=== PATIENT | male | born 1990 | race Caucasian/White ===

== ENCOUNTER 2019-02-19 18:19 | Emergency (ER) | payer OTHER ==
[~2019-02-19] VITALS: Ht 175.3 cm; Wt 205.0 kg
[2019-02-19 18:25] VITALS: BP 171/102
--- NOTE | 2019-02-19 18:32 | NUR ---
PT TO WAIT IN ER LOBBY. WILL MONITOR PTS BP. [id number]
--- NOTE | 2019-02-19 21:05 | NUR ---
28 YO OBESE MALE COMES TO ED FOR C/O L EAR PAIN AND CHEST DISCOMFORT ASSOC WITH COUGH X 2 DAYS. PT STATES DECREASED HEARING IN L EAR WITH MUFFLED SOUNDS. DENIES DRAINAGE OR FEVER. PT STATES HE CLEANED EARS WITH HYDROGEN PEROXIDE X 2 DAYS AGO AND SHORTLY AFTER HAD MUFFLED SOUNDS IN L EAR. PT ALSO C/O COUGH WITH PRODUCTIVE GREEN YELLOW SPUTUM. CLEAR EVEN SYMMETRICAL BILATERAL BREATH SOUNDS. DENIES N/V/D. LATRICIA LOCKED IN LOWEST POSITION. WILL UPDATE ERMD. HX: ASTHMA ALLERGIES: ALOE VERA
--- NOTE | 2019-02-19 21:10 | NUR ---
PT TAKEN TO BED 2
--- NOTE | 2019-02-20 00:35 | NUR ---
Dr. Hall examining patient.
[2019-02-20 01:35] VITALS: BP 126/72
--- NOTE | 2019-02-20 01:40 | NUR ---
Patient discharged with v/s stable. Written and verbal after care instructions given and explained. Patient alert, oriented and verbalized understanding of instructions. Ambulatory with steady gait. All questions addressed prior to discharge. ID band removed. Patient advised to follow up with PMD. Rx of ALBUTEROL, AND CIPRODEX given. Patient educated on indication of medication including possible reaction and side effects. Opportunity to ask questions provided and answered.
== END 2019-02-20 01:40 | disposition home or self-care (01) ==
LOC: MED 18:19
DX: H60.92 Unspecified otitis externa, left ear (principal); J45.909 Unspecified asthma, uncomplicated; Z88.8 Allergy status to other drugs, medicaments and biological substances
CPT/HCPCS: 99283